=== PATIENT | male | born 1975 | race American Indian/Alaskan Native ===

== ENCOUNTER 2018-05-30 14:15 | Emergency (ER) | payer SELFPAY ==
[2018-05-30 14:33] VITALS: BP 162/85
[2018-05-30] MEDS ORDERED: AUGMENTIN 875 MG PO ONE (16:37)
[2018-05-30] MEDS ORDERED: IBUPROFEN PO ONE (16:37)
--- NOTE | 2018-05-30 16:53 | Emergency Department Report ---
HPI - General Chief Complaint: Earache Time Seen by Provider: 05/30/18 15:58 - HPI HPI: This is a 42-year-old male with no prior medical history who presents to ED complaining of left ear feeling stuffy nasal congestion for the past 2-3 days. Patient states he did not sustain trauma or injuries to the head or ears. He denies fever/chills/nausea vomiting/coughing ED Past Medical Hx - Past Medical History Previous Medical History?: No - Surgical History Past Surgical History?: Yes Hx Appendectomy: Yes - Social History Smoking Status: Current Every Day Smoker Substance Use Type: None - Medications Home Medications: Home Medications Medication Instructions Recorded Confirmed Last Taken Type Amoxicillin/K Clav Tab [Augmentin 1 each PO ONCE #6 tablet 05/30/18 Unknown Rx 875MG TAB] Ibuprofen [Motrin 800 MG tab] 800 mg PO TID #20 tablet 05/30/18 Unknown Rx Pseudoephedrine [Sudafed] 30 mg PO TID #30 tablet 05/30/18 Unknown Rx ED Review of Systems ROS: Stated complaint: HEADACHE Other details as noted in HPI Comment: All other systems reviewed and negative Physical Exam - Physical Exam Vital Signs: Vital Signs 05/30/18 14:29 Temperature 99.0 F Pulse Rate 81 Blood Pressure 162/85 O2 Sat by Pulse 100 Oximetry Physical Exam: GENERAL: Alert and oriented x3, no apparent distress, Normal Gait, atraumatic. EARS: symetrical, atraumatic, non tender, ear canal clear and moderate cerumen, tympanic membrance non inflamed. gross auditory nml bilaterally. NOSE: Nose symetrical, Nontender,Nares appeared normal. MOUTH:Mouth is well hydrated and without lesions. Tonsils nonerythematous or swollen, Uvula midline, Tongue not elevated. Mucous membranes are moist. Posterior pharynx clear, no exudate or lesions. Patent airways. Maxillary sinus tenderness NECK: Supple. Non edematous, No carotid bruits. No lymphadenopathy or thyromegaly. No C-spine tenderness LUNGS: Symetrical with respiration, No wheezing, no rales or crackles, CTAB. HEART: S1, S2 present, regular rate and rhythm without murmur, no rubs, no gallops. Non tender to palpation NEUROLOGIC: The patient is cooperative with no focal neurologic deficits. Cranial nerves II through XII are grossly intact. SKIN: Warm and dry, No lesions, No ulceration or induration present. ED Course Vital Signs 05/30/18 14:29 Temperature 99.0 F Pulse Rate 81 Blood Pressure 162/85 O2 Sat by Pulse 100 Oximetry ED Medical Decision Making - Medical Decision Making 42-year-old male who presents with sinusitis. Patient received a dose of amoxicillin and Motrin in the ED. Patient is in no acute or respiratory distress. Vital signs are normal. Discussed the patient to follow up with primary care physician. Critical care attestation.: If time is entered above; I have spent that time in minutes in the direct care of this critically ill patient, excluding procedure time. ED Disposition Clinical Impression: Sinusitis, Sinusitis with nasal polyps Disposition: TO HOME OR SELFCARE Is pt being admited?: No Does the pt Need Aspirin: No Condition: Stable Instructions: Sinusitis (ED), Pseudoephedrine (By mouth) Additional Instructions: Make sure to follow up with the primary care physician as discussed. Take all your medications as you've been prescribed. If you have any worsening symptoms or develop new symptoms please return to ED immediately. Prescriptions: Amoxicillin/K Clav Tab [Augmentin 875MG TAB] 1 each PO ONCE #6 tablet Ibuprofen [Motrin 800 MG tab] 800 mg PO TID #20 tablet Pseudoephedrine [Sudafed] 30 mg PO TID #30 tablet Referrals: PRIMARY CAREMD [Primary Care Provider] - 3-5 Days BROOKE MCKINLEY MD [Referring] - 3-5 Days [facility] [Outside] - 3-5 Days [facility] [Outside] - 3-5 Days Forms: Work/School Release Form(ED) Time of Disposition: 17:01
== END 2018-05-30 17:13 | disposition home or self-care (01) ==
LOC: ED 14:15
DX: J32.9 Chronic sinusitis, unspecified (principal); F17.200 Nicotine dependence, unspecified, uncomplicated; Z90.49 Acquired absence of other specified parts of digestive tract
CPT/HCPCS: 99282